=== PATIENT | female | born 1940 | race Caucasian/White ===

== ENCOUNTER 2020-05-20 18:34 | Emergency (ER) | payer OTHER ==
[~2020-05-20] VITALS: Ht 157.5 cm; Wt 65.8 kg
[2020-05-20 18:48] VITALS: Ht 157.5 cm; Wt 65.8 kg
[2020-05-20 19:48] LABS: microscopic required? NO
[2020-05-20 20:03] LABS: urine erythrocyte NEGATIVE (NEGATIVE)
[2020-05-20 20:19] LABS: BASOPHIL % 0.5 % (0-2); CALCIUM 9.2 mg/dL (8.5-10.1); CARBON DIOXIDE 28.5 mmol/L (21-32); CHLORIDE SERUM 97 mmol/L (98-107); CREATININE SERUM 1.2 mg/dL (0.6-1.0); GLUCOSE SERUM 229 mg/dL (74-106); PLATELET COUNT 289 x10^3mcL (130-400); POTASSIUM SERUM 4.3 mmol/L (3.5-5.1); RED CELL DISTRIBUTION WIDTH 13.9 % (11.5-14.5); SODIUM SERUM 130 mmol/L (136-145)
[2020-05-20 20:23] LABS: ALKALINE PHOSPHATASE 95 U/L (46-116); ALT/SGPT 56 U/L (14-59); AST/SGOT 26 U/L (15-37); BILIRUBIN DIRECT 0.07 mg/dL (0.0-0.2); BILIRUBIN TOTAL 0.4 mg/dL (0.20-1.00); LIPASE 246 IU/L (73-393); TOTAL PROTEIN, SERUM 7.3 g/dL (6.4-8.2)
[2020-05-20 22:18] VITALS: BP 169/89
== END 2020-05-20 22:12 | disposition home or self-care (01) ==
LOC: ED 18:34
PROVIDERS: Emergency Medicine
DX: M54.5 Low back pain (principal); R10.9 Unspecified abdominal pain; I10 Essential (primary) hypertension; E11.9 Type 2 diabetes mellitus without complications; Z88.0 Allergy status to penicillin; Z88.2 Allergy status to sulfonamides; Z98.890 Other specified postprocedural states
CPT/HCPCS: Q9967